=== PATIENT | male | born 1980 | race Hispanic/Latino ===

== ENCOUNTER 2023-07-02 23:42 | Observation (INO) | payer OTHER ==
[2023-07-03 00:55] LABS: Troponin I Less than 0.010 ng/mL (< 0.028)
[2023-07-03 01:10] LABS: HBSAg Index 0.24 S/CO (0-0.99); Hep B Surf Ag Non-Reactive S/CO (NonReactive)
[2023-07-03 02:24] LABS: HBSAg Index 0.31 S/CO (0-0.99); Hep B Surf Ag Non-Reactive S/CO (NonReactive)
[2023-07-03 07:33] LABS: BUN (Urea Nitrogen) 91 mg/dL (8.9-20.6); Calc. Creatinine Clearance 0 mL/min (70-130); Carbon Dioxide 12 mmol/L (22-29); Chloride 111 mmol/L (98-107); Estimated GFR 5; Glucose 95 mg/dL (70-105); Sodium 136 mmol/L (136-145)
[2023-07-03 07:34] LABS: Anion Gap 18 mmol/L (10-20); Calcium 8.2 mg/dL (7.8-10.44)
[2023-07-03 07:37] LABS: Troponin I Less than 0.010 ng/mL (< 0.028)
[2023-07-03] MEDS: LOKELMA 10 GM PACKET PO SCH (10:37)
[2023-07-03] MEDS ORDERED: HumaLOG 300 UNITS/3 ML VIAL SC PRN ×2 (11:31→11:32)
[2023-07-03] MEDS ORDERED: Glucagon 1 MG/ML KIT IM PRN (11:32)
[2023-07-03] MEDS ORDERED: Dextrose 5% in Water 1,000 ML IV PRN (11:32)
[2023-07-03] MEDS ORDERED: Dextrose 50% Abboject 50 ML SYRINGE SLOW IVP PRN (11:32)
[2023-07-03 13:23] LABS: HBSAB Concentration Less than 8.00 mIU/mL; Hep B Core Total Ab Non-Reactive (NonReactive); Hep B Core Total Index 0.13 S/CO (0-0.79); Hep B Surf AB Non-Reactive (NonReactive); Hep C IgG Ab Non-Reactive S/CO (NonReactive)
[2023-07-03] MEDS: Sodium Bicarbonate Tab 325 MG TAB PO SCH (15:42)
[2023-07-03 16:29] LABS: Anion Gap 17 mmol/L (10-20); BUN (Urea Nitrogen) 90 mg/dL (8.9-20.6); Calc. Creatinine Clearance 0 mL/min (70-130); Calcium 8.3 mg/dL (7.8-10.44); Carbon Dioxide 15 mmol/L (22-29); Chloride 109 mmol/L (98-107); Estimated GFR 5; Glucose 113 mg/dL (70-105); Potassium 4.8 mmol/L (3.5-5.1); Sodium 136 mmol/L (136-145)
== END 2023-07-04 01:11 | disposition home or self-care (01) ==
LOC: CSHERS 23:42 → CSHERHOLD 07-03 06:19 → CSHTELE 07-03 21:26
PROVIDERS: ADMIT Hospitalist; ATTEND Hospitalist
DX: T82.49XA Other complication of vascular dialysis catheter, initial encounter (principal); I12.0 Hypertensive chronic kidney disease with stage 5 chronic kidney disease or end stage renal disease; E11.22 Type 2 diabetes mellitus with diabetic chronic kidney disease; N18.6 End stage renal disease; D63.1 Anemia in chronic kidney disease; E87.20 Acidosis, unspecified; Z99.2 Dependence on renal dialysis; Z96.651 Presence of right artificial knee joint; Z88.1 Allergy status to other antibiotic agents; Z88.2 Allergy status to sulfonamides; Z88.4 Allergy status to anesthetic agent; Z88.8 Allergy status to other drugs, medicaments and biological substances; Z79.899 Other long term (current) drug therapy; Y82.9 Unspecified medical devices associated with adverse incidents
CPT/HCPCS: 36415; 36416; 80048; 84484; 86704; 87340; 90935; 93005; G0257; G0378; J1815